=== PATIENT | male | born 1950 | race Caucasian/White ===

== ENCOUNTER 2017-09-11 13:18 | Outpatient (CLI) | payer OTHER ==
[~2017-09-11 13:18] MED LIST: COZAAR50 MG PO; CRESTOR5 MG PO; HUMULOG; HYDROCHLOROTHIA25 MG PO; SYNTHRO PO; TOUJEO SOL300 UNIT/1
== END 2017-09-11 17:00 | disposition home or self-care (01) ==
LOC: RAD 13:18
DX: N20.0 Calculus of kidney (principal)

== ENCOUNTER 2018-11-25 08:26 | Outpatient (CLI) | payer OTHER | END 2018-11-25 08:48 | disposition home or self-care (01) | LOC: RAD 08:26 | DX: N20.0 Calculus of kidney (principal) ==

== ENCOUNTER 2019-09-18 12:02 | Outpatient (CLI) | payer OTHER | END 2019-09-18 12:36 | disposition home or self-care (01) | LOC: RAD 12:02 | DX: N20.0 Calculus of kidney (principal) ==